=== PATIENT | female | born 1985 | race Caucasian/White ===

== ENCOUNTER → 2016-11-19 | Outpatient (CLI) | payer BC ==
[2016-11-19 12:38] LABS: Basophils # (A) 0.1 k/uL (0-0.2); Basophils % (A) 1 %; CH 31.9; CHCM 32.8; Eosinophils # (A) 0.1 k/uL (0-0.7); Eosinophils % (A) 1 %; HCT 40.7 % (34.0-46.0); HDW 2.31; HGB 13.8 gm/dL (11.4-16.0); Luc # (Auto) 0.13; Luc % (Auto) 2; Lymphocytes # (A) 1.9 k/uL (1.0-4.8); Lymphocytes % (A) 21 %; MCH 33.1 pg (25.0-35.0); MCHC 33.9 g/dL (31.0-37.0); MCV 97.5 fL (80.0-100.0); Mean Platelet Volume 7.4; Monocytes # (A) 0.3 k/uL (0-1.0); Monocytes % (A) 4 %; Neutrophils # (A) 6.5 k/uL (1.3-7.7); Neutrophils % (A) 72 %; RBC 4.18 m/uL (3.80-5.40); RDW 12.2 % (11.5-15.5); WBC (Perox) 9.65
[2016-11-19 20:42] LABS: Alternaria alternata IgE <0.10 kU/L; Aspergillus fumagatus IgE <0.10 kU/L; Cat Epith & Dander IgE <0.10 kU/L; Cladosporian herbarum IgE <0.10 kU/L; Dermato. farinae IgE <0.10 kU/L; Maple (Box Elder) IgE <0.10 kU/L; Orchard Grs(Cocksfoot) IgE <0.10 kU/L; Ragweed,Common IgE <0.10 kU/L
[2016-11-19 20:44] LABS: Clam IgE <0.10 kU/L; Egg White IgE <0.10 kU/L; Peanut IgE <0.10 kU/L; Scallop IgE <0.10 kU/L; Soybean IgE <0.10 kU/L
== END | disposition home or self-care (01) ==
LOC: LABWHC1 11:46
PROVIDERS: ATTEND Internal Medicine Critical Care Medicine
DX: T78.49XA Other allergy, initial encounter (principal)
CPT/HCPCS: 36415; 82785; 85025; 86003

== ENCOUNTER 2024-02-11 07:05 | Emergency (ER) | payer BC ==
[2024-02-11 07:09] VITALS: RESP 18; TEMP 97.9
[2024-02-11] MEDS: SODIUM CHLORIDE 0.9% 2,000 ML IV STA (07:43)
[2024-02-11] MEDS: ONDANSETRON 4 MG/2 ML VIAL IVP STA (07:46)
[2024-02-11] MEDS: MORPHINE SULFATE 4 MG/ML SYRINGE IVP STA (07:46)
[2024-02-11] MEDS: KETOROLAC 15 MG/ML 1 ML VIAL IVP STA (07:47)
[2024-02-11 08:02] LABS: Basophils # (A) 0.1 k/uL (0-0.2); Basophils % (A) 1 %; Eosinophils # (A) 0.2 k/uL (0-0.7); Eosinophils % (A) 2 %; HCT 44.3 % (34.0-46.0); Lymphocytes # (A) 2.2 k/uL (1.0-4.8); Lymphocytes % (A) 16 %; MCH 31.5 pg (25.0-35.0); MCHC 31.6 g/dL (31.0-37.0); MCV 99.8 fL (80.0-100.0); Mean Platelet Volume 8.2; Monocytes # (A) 0.5 k/uL (0-1.0); Monocytes % (A) 4 %; Neutrophils # (A) 10.6 k/uL (1.3-7.7); Neutrophils % (A) 77 %; Platelet Count 286 k/uL (150-450); RBC 4.44 m/uL (3.80-5.40); RDW 12.4 % (11.5-15.5); WBC 13.8 k/uL (3.8-10.6)
[2024-02-11 08:11] LABS: ALT 23 U/L (4-34); AST 39 U/L (14-36); African American GFR (CKD) >90 (>60 ml/min/1.73 sqM); Albumin 4.8 g/dL (3.5-5.0); Alkaline Phosphatase 67 U/L (38-126); Anion Gap 7 mmol/L; Blood Urea Nitrogen 9 mg/dL (7-17); Calcium 10.1 mg/dL (8.4-10.2); Carbon Dioxide 24 mmol/L (22-30); Chloride 108 mmol/L (98-107); Glucose 97 mg/dL (74-99); Lipase 92 U/L (23-300); Non-African American GFR(CKD) >90 (>60 ml/min/1.73 sqM); Sodium 139 mmol/L (137-145); Total Bilirubin 0.8 mg/dL (0.2-1.3); Total Protein 7.4 g/dL (6.3-8.2)
[2024-02-11 08:29] LABS: Appearance,Urine Cloudy (Clear); Bilirubin,Urine Negative (Negative); Blood,Urine Moderate (Negative); Color,Urine Yellow; Glucose,Urine (UA) Negative (Negative); Ketones,Urine Negative (Negative); Leukocyte Esterase,Urine Negative (Negative); Mucus,Urine Rare /hpf; Nitrite,Urine Negative (Negative); PH, Urine 8.5 (5.0-8.0); Protein,Urine Trace (Negative); RBC,Urine >182 /hpf (0-5); Specific Gravity,Urine 1.021 (1.001-1.035); Squamous Epithelial Cell,Urine 10 /hpf (0-4); Urobilinogen,Urine <2.0 mg/dL (<2.0); WBC,Urine 1 /hpf (0-5)
[2024-02-11] MEDS: METOCLOPRAMIDE 5 MG/ML 2 ML VIAL IVP STA (09:10)
[2024-02-11] MEDS: diphenhydrAMINE 50 MG/ML 1 ML VIAL IVP STA (09:10)
--- NOTE | 2024-02-11 09:48 | CT ---
EXAMINATION TYPE: CT abdomen pelvis w con DATE OF EXAM: 02/11/2024 COMPARISON: NONE HISTORY: 38-year-old female LT side abdominal pain, vomiting. Pt states she is due to have hysterecto my in couple months. TECHNIQUE: Contiguous axial scanning of the abdomen and pelvis following administration of 100 ml Iso stephan 300 IV contrast. Delayed images through the kidneys and coronal/sagittal reconstructions perform ed. CT DLP: 591.8 mGycm Automated exposure control for dose reduction was used. FINDINGS: The heart is normal size without pericardial effusion. Lung bases clear without pleural effusion. Mild circumferential wall thickening distal esophagus. No focal lesion or biliary ductal dilatation. Portal venous system is patent. Gallbladder, adrenal glands, right kidney, spleen, pancreas within normal limits. Left kidney shows mild hydronephrosis and delayed excretion of contrast. Mild left-sided hydroureter and a 4 mm calcification at the distal left ureter. No dilated small bowel, free fluid, or free air. No mesenteric or retroperitoneal lymphadenopathy. Scattered mild stool. Normal appendix. No pericolonic inflammatory change. Bladder is collapsed. Uterus anteverted. Ovaries are visualized. No abnormal fluid collection in the pelvis or pelvic lymphadenopathy. Bones: No osseous destructive process. IMPRESSION: 1. MILD OBSTRUCTIVE UROPATHY ON THE LEFT WITH A 4 MM DISTAL LEFT URETERAL STONE. 2. MILD CIRCUMFERENTIAL WALL THICKENING DISTAL ESOPHAGUS. CORRELATE FOR ANY SYMPTOMS OF POTENTIAL MIL D ESOPHAGITIS.
[2024-02-11] MEDS: HYDROmorphone 1 MG/ML 1 ML SYRINGE IVP STA (10:05)
[2024-02-11] MEDS: TAMSULOSIN 0.4 MG CAP.ER.24H PO STA (10:36)
--- NOTE | 2024-02-11 10:37 | ED ---
Abdominal Pain HPI - General Chief Complaint: Abdominal Pain Stated Complaint: vomitting Time Seen by Provider: 02/11/24 07:11 Source: patient Mode of arrival: ambulatory Limitations: no limitations - History of Present Illness Initial Comments: 38-year-old female presents emergency department with acute onset of left-sided flank pain. States that the pain is so intense that it is causing her to be nauseated and vomit. Pain is radiating to the left lower quadrant. No history of similar symptoms in the past. Denies any changes in her urination to include dysuria, hematuria or difficulty voiding. Denies diarrhea, constipation, black or bloody stools. No concern for . No vaginal bleeding or discharge. Denies any provocation of the pain with movement. No other alleviating, precipitating or modifying factors - Related Data Home Medications Medication Instructions Recorded Confirmed Albuterol Sulfate [Proventil Hfa] 1 - 2 puff INHALATION RT-Q6H PRN 01/06/15 02/11/24 Cetirizine HCl [Zyrtec] 10 mg PO DAILY 02/11/24 02/11/24 Meloxicam [Mobic] 7.5 mg PO BID PRN 02/11/24 02/11/24 Norethindrone Acetate 5mg Tab 5 mg PO DAILY 02/11/24 02/11/24 tiZANidine [Zanaflex] 4 mg PO DAILY PRN 02/11/24 02/11/24 Previous Rx's Medication Instructions Recorded HYDROcodone/APAP 10-325MG [[place] 1 tab PO Q4HR PRN 3 Days #18 tab 02/11/24 10-325] Ketorolac [Toradol] 10 mg PO Q8HR #15 tab 02/11/24 Ondansetron Odt [Zofran Odt] 4 mg PO Q8HR PRN #20 tab 02/11/24 Tamsulosin [Flomax] 0.4 mg PO DAILY #7 cap 02/11/24 Allergies Allergy/AdvReac Type Severity Reaction Status Date / Time clarithromycin [From Biaxin] Allergy Severe Nausea & Verified 02/11/24 10:48 Vomiting erythromycin lactobionate Allergy Severe Nausea & Verified 02/11/24 10:48 [From Erythrocin] Vomiting fluticasone propionate Allergy Swelling,Ra Verified 02/11/24 10:48 [From Flonase] sh/Hives Review of Systems ROS Statement: Those systems with pertinent positive or pertinent negative responses have been documented in the HPI. ROS Other: All systems not noted in ROS Statement are negative. Past Medical History Past Medical History: Asthma Additional Past Medical History / Comment(s): HX MIGRAINES & ABSENT SEIZURES A TEEN- NONE IN YRS, HX IBS-ON LO-RESIDUE DIET History of Any Multi-Drug Resistant Organisms: None Reported Past Surgical History: Orthopedic Surgery, Tonsillectomy Additional Past Surgical History / Comment(s): RHINOPLASTY,SEPTOPLASTY & TURIBINATE SURGERY,AGE 14 RT KNEE SCOPE * AGE 17 PATELLA FEM.RECONSTRUCTION RT KNEE Past Anesthesia/Blood Transfusion Reactions: Previous Problems w/ Anesthesia, Family History of Problems w/ Anesthesia, Motion Sickness, Postoperative Nausea & Vomiting (PONV) Additional Past Anesthesia/Blood Transfusion Reaction / Comment(s): SEVERE PONV- MOM & SISTER ALSO HAVE PONV Past Psychological History: No Psychological Hx Reported Smoking Status: Current every day smoker Past Alcohol Use History: Rare Past Drug Use History: None Reported - Past Family History Father Additional Family Medical History / Comment(s): @ AGE 39 AFTER CERVICAL NECK SURGERY COMPLICATIONS General Exam Limitations: no limitations General appearance: alert, in distress (Vomiting in the room) Head exam: Present: atraumatic, normocephalic, normal inspection Eye exam: Present: normal appearance, PERRL, EOMI. Absent: scleral icterus, conjunctival injection, periorbital swelling ENT exam: Present: normal exam, mucous membranes moist Neck exam: Present: normal inspection. Absent: tenderness, meningismus, lymphadenopathy Respiratory exam: Present: normal lung sounds bilaterally. Absent: respiratory distress, wheezes, rales, rhonchi, stridor Cardiovascular Exam: Present: regular rate, normal rhythm, normal heart sounds. Absent: systolic murmur, diastolic murmur, rubs, gallop, clicks GI/Abdominal exam: Present: soft, normal bowel sounds. Absent: distended, tenderness, guarding, rebound, rigid Extremities exam: Present: normal inspection, full ROM, normal capillary refill. Absent: tenderness, pedal edema, joint swelling, calf tenderness Back exam: Present: normal inspection Neurological exam: Present: alert, oriented X3, CN II-XII intact Psychiatric exam: Present: normal affect, normal mood Skin exam: Present: warm, dry, intact, normal color. Absent: rash Course Vital Signs 02/11/24 02/11/24 02/11/24 07:06 09:12 10:39 Temperature 97.9 F Pulse Rate 75 85 76 Respiratory 18 18 18 Rate Blood Pressure 135/67 137/88 123/85 O2 Sat by Pulse 100 99 97 Oximetry Medical Decision Making - Medical Decision Making Was pt. sent in by a medical professional or institution (, PA, COMPUTER CUSTOMER SUPPORT SPECIALIST, urgent care, hospital, or alf...) When possible be specific @ -No Did you speak to anyone other than the patient for history (EMS, parent, family, police, friend...)? What history was obtained from this source @ -No Did you review nursing and triage notes (agree or disagree)? Why? @ -I reviewed and agree with nursing and triage notes Were old charts reviewed (outside hosp., previous admission, EMS record, old EKG, old radiological studies, urgent care reports/EKG's, alf records)? Report findings @ -No old charts were reviewed Differential Diagnosis (chest pain, altered mental status, abdominal pain women, abdominal pain men, vaginal bleeding, weakness, fever, dyspnea, syncope, headache, dizziness, GI bleed, back pain, seizure, CVA, palpatations, mental health, musculoskeletal)? @ -Differential Abdominal Pain Women: Appendicitis, Cholecystitis, diverticulosis, ischemic bowel, pancreatitis, hepatitis, UTI, gastroenteritis, AAA, incarcerated hernia, bowel obstruction, constipation, inflammatory bowel, hepatitis, peptic ulcer disease, splenic infarction, perforated viscus, vulvitis, ovarian torsion, PID, kidney stone, placenta abruption, this is not meant to be an all-inclusive list EKG interpreted by me (3pts min.). @ -Not done X-rays interpreted by me (1pt min.). @ -None done CT interpreted by me (1pt min.). @ -Yes and demonstrates left-sided ureteral stone U/S interpreted by me (1pt. min.). @ -None done What testing was considered but not performed or refused? (CT, X-rays, U/S, labs)? Why? @ -None What meds were considered but not given or refused? Why? @ -None Did you discuss the management of the patient with other professionals (pro fessionals i.e. , KIANNA, COMPUTER CUSTOMER SUPPORT SPECIALIST, lab, RT, psych nurse, rn social work, health/safety job titles, teacher, hearing officer, shelter case manager)? Give summary @ -No Was smoking cessation discussed for >3mins.? @ -No Was critical care preformed (if so, how long)? @ -No Were there social determinants of health that impacted care today? How? (Homelessness, low income, unemployed, alcoholism, drug addiction, transportation, low edu. Level, literacy, decrease access to med. care, [facility] [facility], rehab)? @ -No Was there de-escalation of care discussed even if they declined (Discuss DNR or withdrawal of care, Hospice)? DNR status @ -No What co-morbidities impacted this encounter? (DM, HTN, Smoking, COPD, CAD, Cancer, CVA, ARF, Chemo, Hep., AIDS, mental health diagnosis, sleep apnea, morbid obesity)? @ -None Was patient admitted / discharged? Hospital course, mention meds given and route, prescriptions, significant lab abnormalities, going to OR and other pertinent info. @ -Upon arrival patient seen and evaluated in room 15. Thorough history and physical exam was performed. IV access was established. Laboratory studies are conducted. Patient given pain and nausea medications. CT performed which demonstrates left-sided ureteral stone. Patient did require second dose of pain medication. She is reevaluated and has improvement in her symptoms. Patient feels comfortable going home at this time. I instructed her to increase fluid intake. She will be placed on the Flomax. She will alternate taking Toradol with [place]. Patient will be provided nausea medications. Instructed to follow- up with her primary care doctor and the urologist. Return should she have any uncontrolled pain, develop fevers or have decrease in urination. Patient agreeable this plan was discharged in stable condition Undiagnosed new problem with uncertain prognosis? @ -No Drug Therapy requiring intensive monitoring for toxicity (Heparin, Nitro, Insulin, Cardizem)? @ -No Were any procedures done? @ -No Diagnosis/symptom? @ -Acute left flank pain, acute left ureteral stone Acute, or Chronic, or Acute on Chronic? @ -Acute Uncomplicated (without systemic symptoms) or Complicated (systemic symptoms)? @ -Complicated Side effects of treatment? @ -No Exacerbation, Progression, or Severe Exacerbation? @ -No Poses a threat to life or bodily function? How? (Chest pain, USA, PA, pneumonia, PE, COPD, DKA, ARF, appy, cholecystitis, CVA, Diverticulitis, Homicidal, Suicidal, threat to staff... and all critical care pts) @ -No - Lab Data Result diagrams: 02/11/24 07:50 02/11/24 07:50 Lab Results 02/11/24 02/11/24 02/11/24 Range/Units 07:50 07:50 07:50 WBC 13.8 H (3.8-10.6) k/uL RBC 4.44 (3.80-5.40) m/uL Hgb 14.0 (11.4-16.0) gm/dL Hct 44.3 (34.0-46.0) % MCV 99.8 (80.0-100.0) fL MCH 31.5 (25.0-35.0) pg MCHC 31.6 (31.0-37.0) g/dL RDW 12.4 (11.5-15.5) % Plt Count 286 (150-450) k/uL MPV 8.2 Neutrophils % 77 % Lymphocytes % 16 % Monocytes % 4 % Eosinophils % 2 % Basophils % 1 % Neutrophils # 10.6 H (1.3-7.7) k/uL Lymphocytes # 2.2 (1.0-4.8) k/uL Monocytes # 0.5 (0-1.0) k/uL Eosinophils # 0.2 (0-0.7) k/uL Basophils # 0.1 (0-0.2) k/uL Sodium 139 (137-145) mmol/L Potassium 4.0 (3.5-5.1) mmol/L Chloride 108 H (98-107) mmol/L Carbon Dioxide 24 (22-30) mmol/L Anion Gap 7 mmol/L BUN 9 (7-17) mg/dL Creatinine 0.79 (0.52-1.04) mg/dL Est GFR (CKD-EPI)AfAm >90 (>60 ml/min/1.73 sqM) Est GFR (CKD-EPI)NonAf >90 (>60 ml/min/1.73 sqM) Glucose 97 (74-99) mg/dL Calcium 10.1 (8.4-10.2) mg/dL Total Bilirubin 0.8 (0.2-1.3) mg/dL AST 39 H (14-36) U/L ALT 23 (4-34) U/L Alkaline Phosphatase 67 (38-126) U/L Total Protein 7.4 (6.3-8.2) g/dL Albumin 4.8 (3.5-5.0) g/dL Lipase 92 (23-300) U/L Urine Color Yellow Urine Appearance Cloudy H (Clear) Urine pH 8.5 H (5.0-8.0) Ur Specific [place] 1.021 (1.001-1.035) Urine Protein Trace H (Negative) Urine Glucose (UA) Negative (Negative) Urine Ketones Negative (Negative) Urine Blood Moderate H (Negative) Urine Nitrite Negative (Negative) Urine Bilirubin Negative (Negative) Urine Urobilinogen <2.0 (<2.0) mg/dL Ur Leukocyte Esterase Negative (Negative) Urine RBC >182 H (0-5) /hpf Urine WBC 1 (0-5) /hpf Ur Squamous Epith Cells 10 H (0-4) /hpf Urine Mucus Rare H (None) /hpf Urine HCG, Qual (Not Detectd) 02/11/24 Range/Units 07:50 WBC (3.8-10.6) k/uL RBC (3.80-5.40) m/uL Hgb (11.4-16.0) gm/dL Hct (34.0-46.0) % MCV (80.0-100.0) fL MCH (25.0-35.0) pg MCHC (31.0-37.0) g/dL RDW (11.5-15.5) % Plt Count (150-450) k/uL MPV Neutrophils % % Lymphocytes % % Monocytes % % Eosinophils % % Basophils % % Neutrophils # (1.3-7.7) k/uL Lymphocytes # (1.0-4.8) k/uL Monocytes # (0-1.0) k/uL Eosinophils # (0-0.7) k/uL Basophils # (0-0.2) k/uL Sodium (137-145) mmol/L Potassium (3.5-5.1) mmol/L Chloride (98-107) mmol/L Carbon Dioxide (22-30) mmol/L Anion Gap mmol/L BUN (7-17) mg/dL Creatinine (0.52-1.04) mg/dL Est GFR (CKD-EPI)AfAm (>60 ml/min/1.73 sqM) Est GFR (CKD-EPI)NonAf (>60 ml/min/1.73 sqM) Glucose (74-99) mg/dL Calcium (8.4-10.2) mg/dL Total Bilirubin (0.2-1.3) mg/dL AST (14-36) U/L ALT (4-34) U/L Alkaline Phosphatase (38-126) U/L Total Protein (6.3-8.2) g/dL Albumin (3.5-5.0) g/dL Lipase (23-300) U/L Urine Color Urine Appearance (Clear) Urine pH (5.0-8.0) Ur Specific [place] (1.001-1.035) Urine Protein (Negative) Urine Glucose (UA) (Negative) Urine Ketones (Negative) Urine Blood (Negative) Urine Nitrite (Negative) Urine Bilirubin (Negative) Urine Urobilinogen (<2.0) mg/dL Ur Leukocyte Esterase (Negative) Urine RBC (0-5) /hpf Urine WBC (0-5) /hpf Ur Squamous Epith Cells (0-4) /hpf Urine Mucus (None) /hpf Urine HCG, Qual Not Detected (Not Detectd) Disposition Clinical Impression: Ureteral stone with hydronephrosis, Flank pain Disposition: HOME SELF-CARE Condition: Stable Instructions (If sedation given, give patient instructions): Kidney Stones (ED) Additional Instructions: Please alternate taking the two pain medications every 4 hours. Take the Flomax starting tomorrow. Use the nausea medications as needed. Follow-up with your doctor. Strain all of your urine. Drink plenty of fluids. Return for any new or worsening symptoms to include uncontrolled pain, fevers or you stop urinating Prescriptions: Tamsulosin [Flomax] 0.4 mg PO DAILY #7 cap HYDROcodone/APAP 10-325MG [[place] 10-325] 1 tab PO Q4HR PRN 3 Days #18 tab PRN Reason: Severe Pain (Scale 7 To 10) Ketorolac [Toradol] 10 mg PO Q8HR #15 tab Ondansetron Odt [Zofran Odt] 4 mg PO Q8HR PRN #20 tab PRN Reason: Nausea Is patient prescribed a controlled substance at d/c from ED?: Yes When asked, does pt state using other controlled substances?: No If prescribed controlled substance>3 days was MAPS reviewed?: Prescribed <3 Days If opioid is for acute pain is fill amount 7 days or less?: Yes Referrals: Nonstaff,Physician [Primary Care Provider] - 1-2 days Gilmer Ca MD [STAFF PHYSICIAN] - 1-2 days Time of Disposition: 10:41
[2024-02-11 10:39] VITALS: BP 123/85; PULSE 76
== END 2024-02-11 10:45 | disposition home or self-care (01) ==
LOC: EC 07:05
DX: N13.2 Hydronephrosis with renal and ureteral calculous obstruction (principal); F17.200 Nicotine dependence, unspecified, uncomplicated; Z88.1 Allergy status to other antibiotic agents; Z88.6 Allergy status to analgesic agent
CPT/HCPCS: 36415; 80053; 83690; 85025; 81001; 81025; 74177; 99284; 96374; 96375 ×5; 96361 ×2; J2270; J1200; J2765; J2405; J1170; J1885; Q9967